=== PATIENT | female | born 1950 | race Asian ===

== ENCOUNTER 2017-10-18 17:12 | Emergency (ER) | payer OTHER ==
[~2017-10-18] VITALS: Ht 157.5 cm; Wt 52.1 kg
[~2017-10-18 17:12] MED LIST: CHOLESTEROL; CHOLESTEROL RE1 EACH PO; DAILY VALUE1 EACH PO; VITAMIN D31000 UNIT PO
[2017-10-18 19:04] LABS: HEMATOCRIT 34.3 % (36.0-46.0); HEMOGLOBIN 11.7 G/DL (11.9-15.5); MCH 31.3 PG (29.0-34.0); MCHC 34.1 G/DL (30.0-36.0); MCV 91.7 FL (83-99); PLATELET COUNT 227 K/uL (156-360); RBC DIS.WIDTH-CV 12.1 % (11.8-14.6); RBC DIS.WIDTH-SD 40.7 % (39-53); RED BLOOD COUNT 3.74 M/uL (3.80-5.20); WHITE BLOOD COUNT 6.8 K/uL (4.1-10.2)
[2017-10-18 19:13] LABS: PTT 30.6 SEC (25-37)
[2017-10-18 19:16] LABS: ALBUMIN 3.9 g/dL (3.2-4.8); CHLORIDE 110 mEq/L (99-109); POTASSIUM 5.1 mEq/L (3.7-5.4); SODIUM 142 mEq/L (136-147)
[2017-10-18 19:18] LABS: GLUCOSE 95 mg/dL (70-99); TOTAL PROTEIN 6.8 g/dL (6.4-8.3)
[2017-10-18 19:20] LABS: TOTAL BILIRUBIN 0.7 mg/dL (0.0-1.0)
[2017-10-18 19:22] LABS: ALKALINE PHOSPHATASE 61 IU/L (3-129); CREATININE 0.8 mg/dL (0.6-1.3); GFR ESTIMATE (CALCULATED) > 59 mL/min/
[2017-10-18 19:23] LABS: UREA NITROGEN (BUN) 12 mg/dL (9-23)
[2017-10-18 19:24] LABS: AST (GOT) 18 IU/L (2-34)
[2017-10-18 19:25] LABS: ALT (GPT) 14 IU/L (3-49)
[2017-10-18 20:38] LABS: APPEARANCE CLEAR ((CLEAR)); BILIRUBIN NEGATIVE; BLOOD SMALL; COLOR STRAW ((YELLOW)); GLUCOSE (STRIP) NEGATIVE; KETONES NEGATIVE; LEUKOCYTES NEGATIVE; NITRITE NEGATIVE; PROTEIN (STRIP) NEGATIVE; SPECIFIC GRAVITY 1.011 (1.000-1.030); UROBILINOGEN 0.2 MG/DL (0.2-1.0)
[2017-10-18 20:44] LABS: BACTERIA NONE SEEN /HPF; EPITHELIAL CELLS RARE /HPF; MUCUS TRACE /LPF; RED BLOOD CELLS 0-5 /HPF (0-5); UCUL ADDED? NO; WHITE BLOOD CELLS 0-5 /HPF (0-5)
[2017-10-18] MEDS ORDERED: CIPRO500 MG PO (20:58)
[2017-10-18] MEDS ORDERED: FLAGYL500 MG PO (20:58)
[2017-10-18 21:14] VITALS: BP 129/68
== END 2017-10-18 21:16 | disposition home or self-care (01) ==
LOC: EME 17:12
PROVIDERS: Physician Assistant
DX: K62.89 Other specified diseases of anus and rectum (principal)
CPT/HCPCS: 74177; 80053; 81003; 85027; 85610; 85730; 86850; 86900; 86901; 99281; 99284; J7030